=== PATIENT | female | born 1955 | race Caucasian/White ===

== ENCOUNTER → 2024-07-07 10:29 | Outpatient (REF) | payer OTHER, SELFPAY | LOC: HWRAD 10:29 | DX: R05.8 Other specified cough (principal) | CPT/HCPCS: 71046 ==

== ENCOUNTER → 2024-08-17 07:48 | Outpatient (REF) | payer OTHER, SELFPAY | LOC: HWWDC 07:48 | PROVIDERS: ATTENDING PHYSICIAN Physician Assistant Medical | DX: Z12.31 Encounter for screening mammogram for malignant neoplasm of breast (principal); Z78.0 Asymptomatic menopausal state | CPT/HCPCS: 77063; 77067; 77080 ==

== ENCOUNTER → 2025-01-06 08:03 | Outpatient (REF) | payer OTHER, SELFPAY | LOC: HWRAD 08:03 | PROVIDERS: ATTENDING PHYSICIAN Nurse Practitioner Family; FAMILY PHYSICIAN Physician Assistant Medical | DX: R91.8 Other nonspecific abnormal finding of lung field (principal) | CPT/HCPCS: 71250 ==

== ENCOUNTER 2025-01-07 06:17 | Day surgery (SDC) | payer OTHER, SELFPAY | END 2025-01-07 12:09 | disposition home or self-care (01) | LOC: GI 06:17 | PROVIDERS: ATTENDING PHYSICIAN Internal Medicine Gastroenterology; FAMILY PHYSICIAN Physician Assistant Medical | DX: R19.4 Change in bowel habit (principal); R10.13 Epigastric pain; K22.2 Esophageal obstruction; K44.9 Diaphragmatic hernia without obstruction or gangrene; K31.819 Angiodysplasia of stomach and duodenum without bleeding; K31.7 Polyp of stomach and duodenum; D12.4 Benign neoplasm of descending colon; K62.1 Rectal polyp | CPT/HCPCS: 45385; 45380; 43239; 88305 ==

== ENCOUNTER 2025-03-09 15:54 | Observation (INO) | payer OTHER, SELFPAY ==
[2025-03-09] VITALS (15 sets, daily range): BP systolic 118–189; BP diastolic 60–97; PULSE 65; BMI 28.4
[2025-03-09] MEDS: ZOFRAN 4 MG IV (08:37)
[2025-03-09 08:48] LABS: % Basophils 0.6 % (0-2); % Eosinophils 0.7 % (0-6); % Immature Granulocytes 0.3 % (0-0.5); % Lymphocytes 20.8 % (20.5-51.1); % Monocytes 5.7 % (1.7-9.3); % Neutrophils 71.9 % (42.2-75.2); Absolute Eosinophils 0.1 10^3/uL (0-0.7); Absolute Lymphocytes 1.5 10^3/uL (1.2-3.4); Absolute Monocytes 0.4 10^3/uL (0.1-0.6); Absolute Neutrophils 5.2 10^3/uL (1.4-6.5); Hematocrit 43.6 % (37.0-47.0); Hemoglobin 14.7 g/dL (12.0-16.0); Mean Corp Hgb Conc. 33.7 g/dL (33.0-37.0); Mean Corpuscular Hgb 28.3 pg (27.0-31.0); Mean Corpuscular Volume 83.8 fL (81.0-99.0); Mean Platelet Volume 9.5 fL (7.4-10.4); Nucleated Red Blood Cells % 0 %; Platelet Count 300 10^3/uL (130-400); White Blood Cell Count 7.2 10^3/uL (4.8-10.8)
[2025-03-09 09:00] LABS: ALT (SGPT) 13 U/L (0-35); AST (SGOT) 21 U/L (14-36); Albumin 4.5 g/dl (3.5-5.0); Alkaline Phosphatase 76 U/L (38-126); Blood Urea Nitrogen 15 mg/dl (7-17); Calcium 9.4 mg/dl (8.4-10.2); Carbon Dioxide 27 mmol/L (22-30); Chloride 111 mmol/L (98-107); Glucose 137 mg/dl (70-99); Potassium 3.7 mmol/L (3.5-5.1); Sodium 143 mmol/L (135-145); Total Bilirubin 0.6 mg/dl (0.2-1.3); eGFR > 60.00
--- NOTE | 2025-03-09 09:07 | ED.GENMED ---
History of Present Illness
<IDANIA Garcia Last Filed: 03/09/25 11:44>
General
Chief Complaint: Dizziness
Source: patient
Exam Limitations: none
Time Seen by Provider: 03/09/25 08:03
History of Present Illness
History of Present Illness:
69-year-old female presents complaining of dizziness for the past 2 days. She describes spinning sensation worse with position changes. She denies any unilateral numbness or tingling. She denies double or blurry vision. No chest pain or
shortness of breath . No recent fever. No prior symptoms similar to this. She is not anticoagulated. No other complaints
Past History
<IDANIA Garcia Last Filed: 03/09/25 11:44>
Past History
ED Past Medical History: HTN
ED Past Surgical History:
Social History
Tobacco: Smoker (1 PPD)
Alcohol: None
Drug: None
Phy Exam
<IDANIA Garcia Last Filed: 03/09/25 11:44>
Physical Exam
Physical Exam:
General: Uncomfortable appearing female no acute respiratory distress
HEENT: Normocephalic atraumatic pupils equal round reactive to light leftward beating nystagmus
Heart: Regular rate and rhythm
Lungs: Clear no wheeze
Neurologic exam: Alert and oriented finger-nose and heel jeffrey is symmetric bilaterally no facial asymmetry no slurred speech alert and oriented when patient turns the head to the left her dizziness is made worse
Musculoskeletal exam: The spine is nontender
Course
<IDANIA Garcia Last Filed: 03/09/25 11:44>
Orders/Labs/Results
Orders:
Orders
03/09/25 07:56
Electrocardiogram (*1) Urgent
Reason for Study: Vertigo / Dizzy
03/09/25 07:57
EKG- Treatment ONCE
03/09/25 08:33
Ondansetron Injectable [Zofran] 4 mg .ROUTE .STK-MED ONE
Ondansetron Injectable [Zofran] 4 mg IV NOW STA
PT Consult [Pt Eval And Treat] Urgent
Treatment: vestibular eval
Activity Level: Ambulate
03/09/25 08:35
Complete Blood Count/With Diff Urgent
Comprehensive Metabolic Panel Urgent
Erythrocyte Sed Rate Urgent
Comment: ADD ON
Ferritin Routine
Comment: ADD ON
Folate Routine
Comment: ADD ON
Glycohemoglobin (HgbA1c) Urgent
TSH Reflex To Free T4 Routine
Comment: ADD ON
Vitamin B12 Routine
Comment: ADD ON
03/09/25 09:10
CT Head & Neck Angio W/wo IV Urgent
Reason For Exam: dizzy
03/09/25 09:27
Meclizine [Antivert] 25 mg PO NOW STA
03/09/25 11:23
NEUROLOGY CONSULT Urgent
Consulting Provider: Elías Soria
Was physician already notified: Yes
Reason for consult: dizziness
03/09/25 11:35
Add On- LAB Routine
Comments:: Please add to today's labs or draw as routine
Tests Added?: TSH reflex, Ferritin, Folate, Vit. B12, ESR, hemoglobin A1c
03/09/25 11:37
Lipid Profile [Cardiovascular Evaluation] Routine
Comment: May add to blood work in lab
Abnormal Lab Results
03/09/25
08:35
Chloride 111 H mmol/L
(98-107)
Glucose 137 H mg/dl
(70-99)
03/09/25 08:35
03/09/25 08:35
Vital Signs
Initial and Last Documented VS:
Initial Vital Signs
Pulse Resp BP Pulse Ox
70 18 189/97 99
03/09/25 07:53 03/09/25 07:53 03/09/25 07:53 03/09/25 07:53
Last Documented Vital Signs
Pulse Resp BP Pulse Ox
70 18 189/97 99
03/09/25 07:53 03/09/25 07:53 03/09/25 07:53 03/09/25 07:53
<Martha Carrasco DO - Last Filed: 03/09/25 11:24>
Orders/Labs/Results
Orders:
Orders
03/09/25 07:56
Electrocardiogram (*1) Urgent
Reason for Study: Vertigo / Dizzy
03/09/25 07:57
EKG- Treatment ONCE
03/09/25 08:33
Ondansetron Injectable [Zofran] 4 mg .ROUTE .STK-MED ONE
Ondansetron Injectable [Zofran] 4 mg IV NOW STA
PT Consult [Pt Eval And Treat] Urgent
Treatment: vestibular eval
Activity Level: Ambulate
03/09/25 08:35
Complete Blood Count/With Diff Urgent
Comprehensive Metabolic Panel Urgent
Erythrocyte Sed Rate Urgent
Comment: ADD ON
Ferritin Routine
Comment: ADD ON
Folate Routine
Comment: ADD ON
Glycohemoglobin (HgbA1c) Urgent
TSH Reflex To Free T4 Routine
Comment: ADD ON
Vitamin B12 Routine
Comment: ADD ON
03/09/25 09:10
CT Head & Neck Angio W/wo IV Urgent
Reason For Exam: dizzy
03/09/25 09:27
Meclizine [Antivert] 25 mg PO NOW STA
03/09/25 11:23
NEUROLOGY CONSULT Urgent
Consulting Provider: Elías Soria
Was physician already notified: Yes
Reason for consult: dizziness
03/09/25 11:35
Add On- LAB Routine
Comments:: Please add to today's labs or draw as routine
Tests Added?: TSH reflex, Ferritin, Folate, Vit. B12, ESR, hemoglobin A1c
03/09/25 11:37
Lipid Profile [Cardiovascular Evaluation] Routine
Comment: May add to blood work in lab
Abnormal Lab Results
03/09/25
08:35
Chloride 111 H mmol/L
(98-107)
Glucose 137 H mg/dl
(70-99)
03/09/25 08:35
03/09/25 08:35
Vital Signs
Initial and Last Documented VS:
Initial Vital Signs
Pulse Resp BP Pulse Ox
70 18 189/97 99
03/09/25 07:53 03/09/25 07:53 03/09/25 07:53 03/09/25 07:53
Last Documented Vital Signs
Pulse Resp BP Pulse Ox
70 18 189/97 99
03/09/25 07:53 03/09/25 07:53 03/09/25 07:53 03/09/25 07:53
<Benedicto Diaz PA-C - Last Filed: 03/09/25 11:44>
MDM/Problems Addressed
Differential Diagnosis Includes:
Dizziness. She seems to be made worse with position change particularly when turning head to the left. Consider vertigo versus positional vertigo versus CVA
Check labs and EKG consult PT. PT concerned about consistent leftward beating nystagmus even with sitting up. This would not be consistent with positional vertigo. CT of head and CT angio of the head and neck ordered
<Benedicto Diaz PA-C - Last Filed: 03/09/25 11:44>
*Critical Care Note
Total Time (30-74mins, 75-104mins- exclusive of procedures): Not Applicable
<Benedicto Diaz PA-C - Last Filed: 03/09/25 11:44>
Update Note
Update Note:
Seen by PT. PT concern for dizziness that is caused more so than just BPPV. CTA of the head and neck was ordered which was negative. Patient with resting nystagmus and symptoms. Discussed with emergency room attending saw the patient. Also
notified neurology admit to hospital for dizziness and further workup
ED Attending Note
<Benedicto Diaz PA-C - Last Filed: 03/09/25 11:44>
-
Portions of this chart may have been created with voice recognition software.� Occasional wrong word or��sound alike� substitutions may have occurred due to the inherent limitations of voice recognition software.
<Martha Carrasco DO - Last Filed: 03/09/25 11:24>
ED Attending Note
Patient seen and examined by attending physician: Yes
I performed the substantive portion of visit, reviewed & personally made and approve the management plan that is documented in note by myself or CAROL.: Yes
I performed a history and physical exam of patient and discussed management with resident, I reviewed resident's note and agree with documented findings and plan of care.: Yes
ED Attending Note:
69-year-old female presenting with 3 days of dizziness. Does feel that dizziness is worse when looking to the left. Denies inciting injury or trauma. Denies ever having this in the past. Denies weakness or numbness to extremities. Denies visual
changes. Denies fever. Vitals significant for mild hypertension.
On exam, noted to have profound resting nystagmus, most prominent when looking toward the left. Patient also symptomatic with this with suspicion for BPPV, however concerning given nystagmus at rest. Patient initially seen by CAROL. Patient
administered therapeutics without significant improvement. PT had been consulted for vestibular therapy, however PT also expressed concern over resting nystagmus. CT head and CT angio obtained, no acute abnormality. Patient on reassessment
reports no improvement. No additional neurologic symptoms on exam. Given persistent dizziness with profound nystagmus, cannot safely rule out acute intracranial pathology such as stroke. Will plan for neurology consultation, admission, potential
MRI imaging
Discharge Plan
Departure
Patient Disposition: Home (Routine Discharge)
Date of Disposition: 03/09/25
Time of Disposition: 11:44
Patient with high blood pressure during this ER visit?: No
Discharge Problem:
Dizziness
Prescriptions:
No Action
albuterol sulfate 1 PUFF HFA aerosol inhaler
2 puff inhalation R Q4HPRN PRN (Reason: sob/wheezing)
losartan [Cozaar] 100 MG tablet
100 mg PO DAILY
fluoxetine 20 MG capsule
20 mg PO DAILY
multivitamin with folic acid [Tab-A-Claudine] 1 TABLET tablet
1 tab PO DAILY
doxycycline hyclate 100 MG capsule
100 mg PO Q12 Qty: 12 0RF
nifedipine 30 MG tablet extended release
30 mg PO DAILY Qty: 30 0RF
nicotine 21 MG patch 24 hour
21 mg transdermal DAILY 0RF
prednisone 10 MG tablet
10 mg PO .TAPER Qty: 30 0RF
Rx Instructions:
Take 40mg daily x3days, 30mg daily x3days,
20mg daily x3days, 10mg daily x3days.
Referrals:
Janet Kumari PA-C [Family Provider] -
Interventions
Interventions:
*Risk Screen - Suicide Last Done: 03/09/25 07:53
*General Assessment Last Done: 03/09/25 07:53
*Neglect/Abuse Screening Last Done: 03/09/25 07:53
Discharge Date and Time
Print Language: PERUVIAN
[2025-03-09] MEDS: ANTIVERT 25 MG PO (10:12)
--- NOTE | 2025-03-09 11:20 | CON.NEURO ---
Neuro Assessment/Plan
Assessment
Intractable vertigo with left beating nystagmus unresponsive to vestibular therapy and meclizine, and transient right leg weakness ongoing for the past 2 days
Differential diagnosis includes acute onset stroke involving the right cerebellum/brainstem, patient is at higher risk due to tobacco overexposure and significant hypertension
Plan
Check MRI brain
provide ASA and Clopidogrel 75 mg daily unless no evidence of acute stroke for 21 days then ASA alone (if MRI shows an acute stroke)
Smoking cessation recommended
Check blood work for additional metabolic abnormalities
Consultation
Order
Date of Consultation: 03/09/25
Requesting Provider: Emergency department provider
Reason for Consult: Intractable vertigo
Subjective/Objective
Subjective Data
Date of Service: March 09, 2025
Right-Handed
Started 2 days ago with worsening over time. Was not performing routine activities at time of onset. 'Like on a ship.' Worsening with turning head to the left. Hearing loss not present, ringing in ears ongoing chronically in bilateral ears 'humming
sound' prior to bed or while relaxing. Not change buzzing sound recently. Headache started during vestibular therapy in forehead, then improved. Movement worsens.
Began having emesis this AM.
Since presentation at the emergency department, patient has been divided with meclizine and vestibular therapy, which have improved the patient's intractable vertigo.
Not usually having headaches.
No prior episodes of vertigo. Did have right leg weakness for hours which resolved spontaneously, started 4 days ago, resolved then recurrent 2 days. No arm involvement.
Left anterior neck pains started chronically and intermittently, lasting for up to 30 seconds.
Objective Data
Vital Signs
Pulse Resp BP Pulse Ox
70 18 189/97 99
03/09/25 07:53 03/09/25 07:53 03/09/25 07:53 03/09/25 07:53
Lab Results
03/09/25 08:35
03/09/25 08:35
Sodium 143 mmol/L (135-145) 03/09/25 08:35
Potassium 3.7 mmol/L (3.5-5.1) 03/09/25 08:35
BUN 15 mg/dl (7-17) 03/09/25 08:35
Glucose 137 mg/dl (70-99) H 03/09/25 08:35
Calcium 9.4 mg/dl (8.4-10.2) 03/09/25 08:35
Patient Allergies
Penicillins Allergy (Verified 10/10/15 18:04)
Rash
Review of Systems
-
History Source: Patient
All other systems: Reviewed and negative
EENT: Negative Decreased Vision
Respiratory: Negative Trouble Breathing
Cardiac: Negative Chest Pain
Abdomen/GI: Negative Incontinence of Stool
Genitourinary: Negative Incontinence
Musculoskeletal: Other (right leg weakness intermittently); Negative Back Pain or Neck Pain
Neuro: Dizzy and Headache
Physical Exam
-
General: No Apparent Distress and Appears Stated Age
Eyes: OU Absent Papilledema, Round OU, [place] Conjunctivae and No Ptosis
HEENT: Anicteric and Moist Mucous Membranes
Neck: Full Range of Motion
Respiratory: No Dyspnea
Cardiac: No JVD
GI: Non-distended
Skin: Unremarkable
Extremities: No Clubbing, No Cyanosis and No Edema
Psych: Intact Judgement/Insight
Extended Neurological Exam
Mood & Affect: Mood Unremarkable and Affect Unremarkable
Attention Span & Concentration: Awake, Alert, Interactive and No Difficulty with 2 Step Request
Memory: Unremarkable
Tremor: Hand Tremor Absent and Head Tremor Absent
Speech: Quality Unremarkable and Quantity Unremarkable
Cranial Nerve II: Left Eye: Pupillary Reactivity Unremarkable, Pupillary Size Unremarkable and Visual Singh Intact
Cranial Nerve II: Right Eye: Pupillary Reactivity Unremarkable, Pupillary Size Unremarkable and Visual Singh Intact
Cranial Nerves III, IV, : Extraocular Movement: Extraocular Movement Full in all Directions, Nystagmus with Extreme Gaze to Left and Other (Patient continues to have nystagmus with primary gaze beating to the left); Negative Nystagmus with Extreme
Gaze to Right
Cranial Nerve VII: Facial Symmetry: Normal Facial Symmetry
Cranial Nerve VIII: Hearing: Unremarkable Hearing to Normal Conversational Volume
Cranial Nerves IX, X: Palate Movement: Palate Elevation Symmetric
Cranial Nerve XI: Shoulder Shrug: Unremarkable
Cranial Nerve XII: Tongue Protusion: Midline
Muscle Strength, Overall: Spontaneously Moves
Muscle Bulk & Tone: Bulk Unremarkable and Tone Unremarkable
Pronator Drift: No Drift in Upper Extremities
Deep Tendon Reflexes: Trace Throughout
Touch Sensation: Unremarkable
Coordination: [id number] Testing Unremarkable
Babinski Sign: Absent Bilaterally
Data Reviewed
-
CT-A: Report Reviewed
CT Head: Report Reviewed
Labs: Report Reviewed
Reviewed with: Physician Hospital Superintendent and Patient
Old Records: Summarized
Medications
-
Home Medications
�Medication �Instructions �Recorded
albuterol sulfate 90 mcg/actuation 2 puff inhalation R Q4HPRN PRN 10/23/21
aerosol inhaler sob/wheezing
fluoxetine 20 mg capsule 20 mg PO DAILY Mental 10/23/21
Health/Anxiety
losartan 100 mg tablet (Cozaar) 100 mg PO DAILY Blood pressure 10/23/21
multivitamin with folic acid 400 1 tab PO DAILY Supplement 10/23/21
mcg tablet (Tab-A-Claudine)
doxycycline hyclate 100 mg capsule 100 mg PO Q12 #12 caps 10/25/21
nicotine 21 mg/24 hr daily 21 mg transdermal DAILY 10/25/21
transdermal patch
nifedipine 30 mg tablet,extended 30 mg PO DAILY #30 tabs 10/25/21
release
prednisone 10 mg tablet 10 mg PO .TAPER #30 tabs 10/25/21
Past History
Past History
ED Past Medical History: COPD, HTN, Psychiatric (Major depression, ADHD) and Other (Moderate obstructive sleep apnea)
ED Past Surgical History: and Other (Bilateral carpal tunnel release)
Social History
Tobacco: Smoker (1 pack/day)
Alcohol: None
Drug: None
Family History
Family History: Other (Reviewed and noncontributory)
[2025-03-09 11:52] LABS: Erythrocyte Sed Rate 15 mm/hour (0-20)
--- NOTE | 2025-03-09 12:04 | HPS.HSE ---
Addendum entered and electronically signed by Tano Marcos MD 03/09/25 16:01:
Severe dizziness that has worsened over past 48 hrs
Pt seen independently and agree with CRITICAL CARE NURSE SPECIALIST note
E - bilateral nystagmus
Lungs coarse expiratory wheeze
CV Reg
Ext no edema
Imp: Dizziness - vertigo vs neurologic etiology
COPD
continued cigarette use
P:continue preadmit meds
Neuro consult
MRI
discussed importance of smoking cessation
Original Note:
Family Physician
-
Family Physician: Janet Kumari PA-C
Chief Complaint
-
dizziness
History of Present Illness
69-year-old female with PMH for COPD, HTN, current smoker presents complaining of dizziness for the past 2 days. She describes spinning sensation worse with position changes. it worse when she is up and moving. gets relief whey she is laying down.
she complained of right LE weakness four days prior to this symptoms, which resolved. she is nauseous and vomiting. denied abdominal pain or diarrhea. denied dysuria or hematuria. She denies any unilateral numbness or tingling. She denies double
or blurry vision. No chest pain or shortness of breath . No recent fever.
CT head and neck negative. Patient received aspirin, Plavix, meclizine, Zofran in ER. Admitted for further management
Medical History
Past Medical History
Past Medical History: Reports Other
Additional Past Medical History:
Emphysema, insomnia, sleep apnea, ADD, hypertension, depression
Past Surgical History: Reports Other
Additional Past Surgical History:
Carpal tunnel release, ,
Social History
Tobacco: Smoker (1 pack a day)
Alcohol: None
Drug: None
Personal:
Living: With Family
Employment: Not Employed
Family History
Family History: Not pertinent
Allergies / Home Medications
Allergies reflects when Allergies were last updated in [employer].
Home Medications with original date entered in [employer]
Allergy/Medication List:
Allergies
Allergy/AdvReac Type Severity Reaction Status Date / Time
Penicillins Allergy Rash Verified 10/10/15 18:04
Home Medications
albuterol sulfate 90 mcg/actuation aerosol inhaler 2 puff inhalation R Q4HPRN PRN sob/wheezing 10/23/21
fluoxetine 20 mg capsule 20 mg PO DAILY Mental Health/Anxiety 10/23/21
losartan 100 mg tablet (Cozaar) 100 mg PO DAILY Blood pressure 10/23/21
multivitamin with folic acid 400 mcg tablet (Tab-A-Claudine) 1 tab PO DAILY Supplement 10/23/21
doxycycline hyclate 100 mg capsule 100 mg PO Q12 #12 caps 10/25/21
nicotine 21 mg/24 hr daily transdermal patch 21 mg transdermal DAILY 10/25/21
nifedipine 30 mg tablet,extended release 30 mg PO DAILY #30 tabs 10/25/21
prednisone 10 mg tablet 10 mg PO .TAPER #30 tabs 10/25/21
Review of Systems
-
Constitutional: Reports No Symptoms
EENT: Reports No Symptoms
Respiratory: Reports No Symptoms
Cardiac: Reports No Symptoms
Abdomen/GI: Reports No Symptoms
: Reports No Symptoms
Musculoskeletal: Reports No Symptoms
Skin: Reports No Symptoms
Neurological: Reports Dizzy
Endocrine: Reports No Symptoms
Hematologic/Lymphatic: Reports No Symptoms
Psych: Reports No Symptoms
Physical Exam
Vital Signs
Vital Signs
Pulse Resp BP Pulse Ox
70 18 189/97 99
03/09/25 07:53 03/09/25 07:53 03/09/25 07:53 03/09/25 07:53
Physical Exam
General: Well Developed, Well Nourished and No Apparent Distress
HEENT: NormoCephalic, Moist mucous membranes and Atraumatic
Respiratory: Clear
Cardiac: S1/S2 and Regular Rhythm; No Murmur or Rub
GI: Soft, Non Tender, Non Distended and Normal Bowel Sounds; No Organomegaly
Rectal: Deferred by Provider
Musculoskeletal: No Clubbing, No Cyanosis and No Edema
Skin: No Rash
Neuro: AO x 3 and Nonfocal/grossly intact
Psych: Calm
Laboratory Results
-
03/09/25 08:35
03/09/25 08:35
Laboratory Results
Total Bilirubin 0.6 mg/dl (0.2-1.3) 03/09/25 08:35
AST 21 U/L (14-36) 03/09/25 08:35
ALT 13 U/L (0-35) 03/09/25 08:35
Alkaline Phosphatase 76 U/L (38-126) 03/09/25 08:35
Data Reviewed
-
CT Scan: Report Reviewed by me
Lab Data: Labs Reviewed by me
Impression/Plan
-
# Dizziness concern for acute stroke
- Zofran and meclizine in ED
-Patient is unresponsive to vestibular therapy
-CT head/neck negative
-EKG with normal sinus rhythm
-Obtain MRI
-Aspirin and Plavix
- Neurology consulted
#nicotine dependence
- denied nicotine patch
- counselled on smoking cessation
Essential HTN
- continue Losartan, Norvasc with hold parameter
ADHD
Depression
- continue Bupropion
#COPD
-Anoro continued
DVT ppx: SCD
Code: Full
[2025-03-09] MEDS: PLAVIX 75 MG PO (12:31)
[2025-03-09] MEDS: ASPIR LOW (ENTERIC COATED) 81 MG PO (12:31)
[2025-03-09 13:33] LABS: TSH Reflex To Free T4 0.66 uIU/ml (0.47-4.68)
[2025-03-09 13:37] LABS: Ferritin 11.9 ng/ml (11.1-264.0)
--- NOTE | 2025-03-09 16:00 | PTCARENOTE ---
Pt arrived to unit. AAOx4. VSS. Patient ambulated from stretcher to be with assistance and walker. Patient in NAD. call adorno in reach. safety maintained.
--- NOTE | 2025-03-09 16:06 | DOWNTIME ---
There was a [employer] Client Machine Printer Hose Downtime on 03/09/2025 from 1230 to 03/09/2025 at 1550. Downtime documentation of patient's care, including medication administrations, has been reconciled in the electronic record per guidelines. Refer to the
patient's paper chart under the miscellaneous tab to see printed paper medication records and downtime forms.
--- NOTE | 2025-03-09 16:10 | DOWNTIME ---
There was a [employer] Client Operations Intelligence Superintendent Downtime on 03/09/2025 from 1230 to 03/09/2025 at 1550. Downtime documentation of patient's care, including medication administrations, has been reconciled in the electronic record per guidelines. Refer to the
patient's paper chart under the miscellaneous tab to see printed paper medication records and downtime forms.
[2025-03-09 16:18] LABS: Folate 15.9 ng/ml (2.76-20); Vitamin B12 337 pg/ml (239-931)
[2025-03-09] MEDS: STRIVERDI RESPIMAT INH (16:35)
[2025-03-09] MEDS: SPIRIVA RESPIMAT 2.5 MCG INH (16:38)
[2025-03-09] MEDS: VITAMIN B-12 1000 MCG PO (18:27)
[2025-03-09 20:04] LABS: HDL Cholesterol 65 mg/dl; LDL Cholesterol, Calculated 151 mg/dl; Total Cholesterol 240 mg/dl (50-199); Triglyceride 121 mg/dl (10-149); Very Low Density Lipoprotein 24 mg/dl (0-30)
[2025-03-09] MEDS: FLUSH (NSS) 1 FLUSH IV (20:48)
[2025-03-10] VITALS (8 sets, daily range): BP systolic 132–198; BP diastolic 72–90; PULSE 64; O2SAT 92
[2025-03-10] MEDS: SPIRIVA RESPIMAT 2.5 MCG 2 PUFF INH (07:40)
[2025-03-10] MEDS: STRIVERDI RESPIMAT 2 PUFF INH (07:41)
[2025-03-10] MEDS: THERAGRAN 1 TABLET PO (08:31)
[2025-03-10] MEDS: COZAAR 100 MG PO (08:31)
[2025-03-10] MEDS: ASPIR LOW (ENTERIC COATED) 81 MG PO (08:31)
[2025-03-10] MEDS: WELLBUTRIN XL (24 hour extended release) 150 MG PO (08:31)
[2025-03-10] MEDS: VITAMIN B-12 1000 MCG PO (08:31)
[2025-03-10] MEDS: PLAVIX 75 MG PO (08:31)
[2025-03-10] MEDS: NORVASC 2.5 MG PO (08:31)
[2025-03-10 08:37] LABS: Glycohemoglobin (HgbA1c) 5.4 % (4.0-5.6)
--- NOTE | 2025-03-10 08:55 | PTOTSP ---
Speech Language Pathology
Pt seen for speech/language evaluation. No dysarthria /dysphonia noted. Language evaluated via the Quick Aphasia Battery (QAB), form 1. Pt with an overall score of 9.55, indicative of overall skills WFL.
Pt also seen for clinical bedside swallow evaluation. Seen with breakfast tray of regular solids/thin liquids. Adequate mastication, bolus formation, and A-P transit noted. No overt signs of aspiration. Limited intake secondary to nausea.
Recommend:
(1) Regular solids/thin liquids
(2) General aspiration precautions
(3) Meds as tolerated
(4) HUB ASSOCIATE to sign off. Please reconsult as indicated
--- NOTE | 2025-03-10 09:12 | W.PN.NEURO.1 ---
Addendum entered and electronically signed by Elías Soria MD 03/10/25 17:03:
Studies reviewed.
I have personally examined the patient. I reviewed and agree with the LEAK INSPECTOR's Note.
My addenda:
Awake, alert, interactive. No acute distress.
Speech intact.
Follows 2-step requests w/o difficulty. No tremor.
Extra-ocular movements grossly intact.
Facial movements full and symmetric. Hearing intact to normal conversational volume.
Normal UE movements bilaterally.
Neck: full ROM.
Chest: no dyspnea
Heart: no JVD
Ext: (-) Clubbing, (-) Cyanosis, (-) Edema
IMPRESSIONS/RECOMMENDATIONS:
Abrupt onset of vertigo with left beating nystagmus
Await MRI of brain
Continue aspirin and clopidogrel unless MRI fails to demonstrate abnormalities
Continue newly initiated cyanocobalamin
Provide medical educational materials
D/W patient
Will continue to follow pending results.
Original Note:
Documented by User: Dang Kennedy NP 03/10/25 14:32
Today's Communication / Plan
-
.
Neuro Assessment/Plan
Assessment
Intractable vertigo with left beating nystagmus unresponsive to vestibular therapy and meclizine, and transient right leg weakness ongoing for the past 2 days
Differential diagnosis includes acute onset stroke involving the right cerebellum/brainstem, patient is at higher risk due to tobacco overexposure and significant hypertension. Physical therapy finding +BPPV, vestibular neuritis also possible.
Plan
Check MRI brain noncontrast
provide ASA and Clopidogrel 75 mg daily unless no evidence of acute stroke for 21 days then ASA alone (if MRI shows an acute stroke)
Provide prochlorperazine 10mg IV x1 and q8hrs PRN for headache.
Okay to continue PRN meclizine.
Smoking cessation recommended
Goal normotension
LDL goal <70. LDL is 151. Start atorvastatin 40mg daily.
Vitamin B12 level is low at 337, continue cyanocobalamin 1000mcg PO daily.
Goal normoglycemia, hbA1c is 5.4.
NIHSS and neurological checks per unit guidelines, patient provided with a stroke education packet.
PT/OT/ST evaluations.
Will follow pending results.
Subjective/Objective
Subjective Data
Date of Service: March 10, 2025
Patient reports feeling somewhat improved today. She still has dizziness when she turns quickly in bed. Looking left is no longer producing dizziness but looking in several different directions brings on nausea. She also notes that walking still is
not normal, she has the sensation that she is on a boat when walking.
Objective Data
Vital Signs
Temp Pulse Resp BP Pulse Ox
97.9 F 72 16 162/87 94
03/10/25 07:30 03/10/25 07:49 03/10/25 07:49 03/10/25 07:30 03/10/25 07:49
Lab Results
03/09/25 08:35
03/09/25 08:35
Sodium 143 mmol/L (135-145) 03/09/25 08:35
Potassium 3.7 mmol/L (3.5-5.1) 03/09/25 08:35
BUN 15 mg/dl (7-17) 03/09/25 08:35
Glucose 137 mg/dl (70-99) H 03/09/25 08:35
Calcium 9.4 mg/dl (8.4-10.2) 03/09/25 08:35
LDL Cholesterol, Calc Cancelled 03/09/25 11:37
Vitamin B12 337 pg/ml (239-931) 03/09/25 08:35
Patient Allergies
Penicillins Allergy (Verified 10/10/15 18:04)
Rash
LDL Level: >70, statin ordered
Review of Systems
-
History Source: Patient
EENT: Negative Blurry Vision, Eye Pain, Decreased Vision or Swallowing Difficulty
Respiratory: Negative Cough or Trouble Breathing
Cardiac: Negative Chest Pain or Palpitations
Abdomen/GI: Nausea and Vomiting
Neuro: Dizzy and Headache; Negative Weakness, Numbness or Speech Problem
Physical Exam
-
General: Well Developed and Well Nourished
Eyes: No Ptosis and PERRLA
HEENT: Normocephalic and Atraumatic
Neck: Full Range of Motion
Respiratory: No Dyspnea
GI: Non-distended
Extremities: No Clubbing, No Cyanosis and No Edema
Psych: Unremarkable
Extended Neurological Exam
Mood & Affect: Mood Unremarkable and Affect Unremarkable
Attention Span & Concentration: Awake, Alert, Interactive and No Difficulty with 2 Step Request
Memory: Unremarkable and Able to Recall
Tremor: Hand Tremor Absent and Head Tremor Absent
Involuntary Movement: None
Speech: Quality Unremarkable, Quantity Unremarkable and Rate of Production Unremarkable
Cranial Nerve II: Left Eye: Pupillary Reactivity Unremarkable, Pupillary Size Unremarkable and Visual Singh Intact
Cranial Nerve II: Right Eye: Pupillary Reactivity Unremarkable, Pupillary Size Unremarkable and Visual Singh Intact
Cranial Nerves III, IV, : Extraocular Movement: Extraocular Movement Full in all Directions and Nystagmus with Extreme Gaze to Left (and slightly with resting gaze)
Cranial Nerve V: Facial Sensation: Intact to Light Touch
Cranial Nerve VII: Facial Symmetry: Normal Facial Symmetry
Cranial Nerve VIII: Hearing: Unremarkable Hearing to Normal Conversational Volume
Cranial Nerves IX, X: Palate Movement: Palate Elevation Symmetric
Cranial Nerve XI: Shoulder Shrug: Unremarkable
Cranial Nerve XII: Tongue Protusion: Midline
Muscle Strength, Overall: Full Throughout
Muscle Bulk & Tone: Bulk Unremarkable and Tone Unremarkable
Pronator Drift: No Drift in Upper Extremities and No Drift in Lower Extremities
Touch Sensation: Double Simultaneous Stimulation Unremarkable
Coordination: Mgidmh-kehc-hodlwq Testing Unremarkable
Gait & Station: Unable to Assess
Modified Ester Score (MRS)
-
Modified Pollok Scale (mRS): Moderately severe disability. Unable to attend to bodily needs/walk.
Score: 4
Data Reviewed
-
CT-A: Report Reviewed and Image Reviewed
CT Head: Report Reviewed and Image Reviewed
MRI Head: Pending
Labs: Report Reviewed
Lipid Profile: Report Reviewed
HgbA1C: Report Reviewed
Reviewed with: Physician and Patient

Documented by User: Elías Soria MD 03/10/25 17:00
Modified Ester Score (MRS)
-
Score: 4
[2025-03-10] MEDS: COMPAZINE 10 MG IV (09:20)
--- NOTE | 2025-03-10 12:42 | CM ---
CM reviewed chart, patient seen bedside, initial assessment completed. Patient resides with her and son in a ranch style home, two steps to enter. Patient denies VN/SNF history. DME in the home: CPAP, cane, walker, crutches. Patient confirms
PCP Janet Sagastume, pharmacy [facility], confirms prescription coverage. CM discussed PT recommendations of outpatient vestibular therapy, patient agreeable, will require script upon discharge. LEVY form verbally reviewed, provided with copy,
placed in chart. CM will continue to follow for all discharge planning needs.
Plan; home with script for outpatient vestibular therapy
--- NOTE | 2025-03-10 15:38 | W.PN.HOSP.TC ---
Today's Communication/Plan
-
Await MRI, medication decision to follow
Assessment / Plan
Assessment / Plan
# Dizziness concern for acute stroke
- Zofran and meclizine in ED
-Patient is unresponsive to vestibular therapy
-CT head/neck negative
-EKG with normal sinus rhythm
-Obtain MRI
pending
-Aspirin and Plavix
- Neurology consulted, input appreciated
#nicotine dependence
- denied nicotine patch
- counselled on smoking cessation
Essential HTN
- continue Losartan, Norvasc with hold parameter
ADHD
Depression
- continue Bupropion
#COPD
-Anoro continued
DVT ppx: SCD
Code: Full
Anticipated Discharge: 24 - 48 hours
Subjective/Interval History
-
Date of Service: March 10, 2025
Dizziness has lessened, but not resolved
Objective Data
-
Vital Signs:
Vital Signs
Temp Pulse Resp BP Pulse Ox
98.2 F 73 18 161/83 97
03/10/25 11:29 03/10/25 11:29 03/10/25 11:29 03/10/25 11:29 03/10/25 11:29
I&O
03/09/25 03/10/25 03/11/25
06:59 06:59 06:59
Intake Total 120 / 120
Balance 120 / 120
Review of Systems
-
History Source: Patient
Constitutional: Denies Fever
EENT: Reports No Symptoms Reported
Respiratory: Reports No Symptoms
Cardiac: Reports No Symptoms
Abdomen/GI: Reports No Symptoms
Physical Exam
-
General: Well Developed, Well Nourished and No Apparent Distress
HEENT: Normocephalic, Atraumatic, Moist Mucous Membranes and Other (nystagmus present)
Respiratory: Clear to Auscultation; Negative Wheezes, Rales or Rhonchi
Cardiac: Regular Rhythm and S1/S2
GI: Soft, Nontender and Nondistended
Musculoskeletal: No Clubbing, No Cyanosis and No Edema
Neuro: Awake and Alert
[2025-03-10] MEDS: LIPITOR 40 MG PO (18:18)
[2025-03-11 03:42] VITALS: BP 162/82
[2025-03-11 07:00] VITALS: BP 143/87
[2025-03-11] MEDS: STRIVERDI RESPIMAT 2 PUFF INH (08:14)
[2025-03-11] MEDS: SPIRIVA RESPIMAT 2.5 MCG 2 PUFF INH (08:14)
[2025-03-11] MEDS: COZAAR 100 MG PO (08:16)
[2025-03-11] MEDS: NORVASC 2.5 MG PO (08:16)
[2025-03-11] MEDS: ASPIR LOW (ENTERIC COATED) 81 MG PO (08:16)
[2025-03-11] MEDS: VITAMIN B-12 1000 MCG PO (08:16)
[2025-03-11] MEDS: THERAGRAN 1 TABLET PO (08:16)
[2025-03-11] MEDS: PLAVIX 75 MG PO (08:16)
[2025-03-11] MEDS: WELLBUTRIN XL (24 hour extended release) 150 MG PO (08:17)
--- NOTE | 2025-03-11 08:19 | W.PN.NEURO.1 ---
Addendum entered and electronically signed by Elías Soria MD 03/11/25 16:53:
Patient is awake alert and interactive. She indicates that her vertigo has completely resolved. No other associated symptoms at this time.
MRI of the brain is unremarkable.
Original Note:
Today's Communication / Plan
-
Stop ASA and Clopidogrel 75 mg
Provide prochlorperazine 10mg IV x1 and q8hrs PRN for headache.
Okay to continue PRN meclizine.
Smoking cessation recommended
LDL goal <70. LDL is 151. Start atorvastatin 40mg daily.
Vitamin B12 level is low at 337, continue cyanocobalamin 1000mcg PO daily.
Neuro Assessment/Plan
Assessment
Intractable vertigo with left beating nystagmus unresponsive to vestibular therapy and meclizine, and transient right leg weakness ongoing for the past 2 days
Differential diagnosis includes acute onset stroke involving the right cerebellum/brainstem, patient is at higher risk due to tobacco overexposure and significant hypertension. Physical therapy finding +BPPV, vestibular neuritis also possible.
Plan
Stop ASA and Clopidogrel 75 mg
Provide prochlorperazine 10mg IV x1 and q8hrs PRN for headache.
Okay to continue PRN meclizine.
Smoking cessation recommended
Goal normotension
LDL goal <70. LDL is 151. Start atorvastatin 40mg daily.
Vitamin B12 level is low at 337, continue cyanocobalamin 1000mcg PO daily.
Will follow pending results.
Subjective/Objective
Subjective Data
Date of Service: March 11, 2025
Objective Data
Vital Signs
Temp Pulse Resp BP Pulse Ox
36.6 C 81 16 162/82 98
03/11/25 03:42 03/11/25 08:16 03/11/25 08:16 03/11/25 03:42 03/11/25 08:16
Lab Results
03/09/25 08:35
03/09/25 08:35
Sodium 143 mmol/L (135-145) 03/09/25 08:35
Potassium 3.7 mmol/L (3.5-5.1) 03/09/25 08:35
BUN 15 mg/dl (7-17) 03/09/25 08:35
Glucose 137 mg/dl (70-99) H 03/09/25 08:35
Calcium 9.4 mg/dl (8.4-10.2) 03/09/25 08:35
LDL Cholesterol, Calc Cancelled 03/09/25 11:37
Vitamin B12 337 pg/ml (239-931) 03/09/25 08:35
Patient Allergies
Penicillins Allergy (Verified 10/10/15 18:04)
Rash
[2025-03-11 10:34] VITALS: BP 179/98
[2025-03-11 11:00] VITALS: BP 192/88
--- NOTE | 2025-03-11 11:50 | CM ---
Addendum entered by Teresa Hernández 03/11/25 13:57:
CM spoke with patient via phone; will transport home
Plan: discharge to home today
Original Note:
Chart reviewed; CM will monitor for discharge needs and support accordingly
--- NOTE | 2025-03-11 12:27 | W.PN.HOSP.TC ---
Today's Communication/Plan
-
dc now
Assessment / Plan
Assessment / Plan
# Dizziness concern for acute stroke
- Zofran and meclizine in ED
-Patient is unresponsive to vestibular therapy
-CT head/neck negative
-EKG with normal sinus rhythm
- MRI: Mild age-related parenchymal atrophy. 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 No mass effect, midline shift, or extra axial
collection. No abnormal signal intensity on diffusion-weighted images.
The vascular flow voids at the skull base are unremarkable, as far as visualized.
The paranasal sinuses are clear. Minimal fluid signal in the right inferior mastoid air cells. Bilateral ocular lens implants.
No MRI evidence for an acute infarct.
caution with activity discussed. Most likely Vertigo
-Aspirin and Plavix was started
- Neurology consulted, input appreciated. Discussed with Dr. Soria, ASA and Plavix can be stopped
#nicotine dependence
- denied nicotine patch
- counselled on smoking cessation
Essential HTN
- continue Losartan, Norvasc with hold parameter
ADHD
Depression
- continue Bupropion
#COPD
-Anoro continued
DVT ppx: SCD
Code: Full
dc now
see dictated note
Anticipated Discharge: Today
Subjective/Interval History
-
Date of Service: March 11, 2025
Feels well, dizziness much reduced
Objective Data
-
Vital Signs:
Vital Signs
Temp Pulse Resp BP Pulse Ox
97.9 F 69 18 192/88 97
03/11/25 11:00 03/11/25 11:00 03/11/25 11:00 03/11/25 11:00 03/11/25 11:00
I&O
03/10/25 03/11/25 03/12/25
06:59 06:59 06:59
Intake Total 120 / 120 600 / 600
Balance 120 / 120 600 / 600
Review of Systems
-
History Source: Patient
Constitutional: Denies Fever
EENT: Reports No Symptoms Reported
Respiratory: Reports No Symptoms
Cardiac: Reports No Symptoms
Abdomen/GI: Reports No Symptoms
Neuro: Reports Dizzy (not resolved, but decreased)
Physical Exam
-
General: Well Developed, Well Nourished and No Apparent Distress
HEENT: Normocephalic, Atraumatic, Moist Mucous Membranes and Other (lateral nystagmus present, significantly reduced)
Respiratory: Clear to Auscultation; Negative Wheezes, Rales or Rhonchi
Cardiac: Regular Rhythm and S1/S2
GI: Soft, Nontender and Nondistended
Musculoskeletal: No Clubbing, No Cyanosis and No Edema
Neuro: Awake and Alert
--- NOTE | 2025-03-11 16:14 | W.DS.TRANS ---
DC Summary - Educational Administrator
-
Discharge Instructions:
Discharge Diagnosis/Procedures Vertigo
Diet Regular
Activity No strenuous activity
Additional Activity avoid activity that increases fall risk
Driving Restrictions Not until seen by your Dr
Bathing Restrictions None
Instructions:
Stand-Alone Forms:
Changes to Home Medications: Yes
Discharge Medications:
DC Medications w/original date entered in [employer]
losartan 100 mg tablet (Cozaar) 100 mg PO DAILY Blood pressure 10/23/21
multivitamin with folic acid 400 mcg tablet (Tab-A-Claudine) 1 tab PO DAILY Supplement 10/23/21
amlodipine 2.5 mg tablet (Norvasc) 2.5 mg PO DAILY Blood Pressure 03/09/25
bupropion HCl 150 mg 24 hr tablet, extended release (Wellbutrin XL) 150 mg PO DAILY Depression 03/09/25
umeclidinium 62.5 mcg-vilanterol 25 mcg/actuation powdr for inhalation (Anoro Ellipta) 1 inh inhalation R DAILY Lung/Breathing Issues 03/09/25
atorvastatin 20 mg tablet (Lipitor) 20 mg PO HS #30 tabs 03/11/25
meclizine 12.5 mg tablet 12.5 mg PO QID #30 tabs 03/11/25
Home Medication Changes
Lipitor 20 mg added
Antivert to be used until symptoms fully resolved
Pending Results: No
== END 2025-03-11 14:39 | disposition home or self-care (01) ==
LOC: 4 WEST ACU 15:54
PROVIDERS: Physician Assistant; ADMITTING PHYSICIAN Internal Medicine; CONSULT PHYSICIAN Psychiatry & Neurology Neurology; EMERGENCY PHYSICIAN Student in an Organized Health Care Education/Training Program; FAMILY PHYSICIAN Physician Assistant Medical
DX: R42 Dizziness and giddiness (principal); I10 Essential (primary) hypertension; F17.210 Nicotine dependence, cigarettes, uncomplicated; H55.00 Unspecified nystagmus; H93.13 Tinnitus, bilateral; R51.9 Headache, unspecified; R11.2 Nausea with vomiting, unspecified; G83.11 Monoplegia of lower limb affecting right dominant side; F90.9 Attention-deficit hyperactivity disorder, unspecified type; F32.9 Major depressive disorder, single episode, unspecified; G47.33 Obstructive sleep apnea (adult) (pediatric); E78.5 Hyperlipidemia, unspecified; J44.9 Chronic obstructive pulmonary disease, unspecified; G47.00 Insomnia, unspecified; E04.1 Nontoxic single thyroid nodule; R94.31 Abnormal electrocardiogram [ECG] [EKG]; Z96.1 Presence of intraocular lens; Z79.899 Other long term (current) drug therapy; Z88.0 Allergy status to penicillin
CPT/HCPCS: 70496; 70498; 70551; 80053; 80061; 82607; 82728; 82746; 83036; 84443; 85025; 85652; 92523; 92610; 93005; 94640; 96374; 97112; 97167; 99285; G0378; Q9967